=== PATIENT | female | born 1970 | race Caucasian/White ===

== ENCOUNTER 2020-01-26 14:05 | Outpatient (CLI) | payer OTHER, SELFPAY ==
--- NOTE | ~2020-01-26 | US_ITS ---
EXAMINATION: US pelvic complete w TV DATE: 01/26/2020 15:23 INDICATION: Pelvic and perineal pain Comparison:09/19/2014 TECHNIQUE: Multiple transabdominal and endovaginal sonographic images of the pelvis performed. FINDINGS: The uterus measures 7.9 x 5 x 4.5 cm. There are nabothian cysts. The endometrial complex me asures 5 mm. The right ovary measures 2.3 x 2.3 x 1.4 cm and the left ovary measures 2.2 x 2.3 x 2.7 cm. There ar e small follicles in each ovary. There is no free fluid in the pelvis. There are no abnormal masses seen on either side. IMPRESSION: 1. Unremarkable pelvic ultrasound. Reviewed, dictated and finalized at location A.
== END 2020-01-26 14:06 | disposition home or self-care (01) ==
LOC: ANHIMG 14:16
PROVIDERS: PCP Family Medicine; Visit Provider Obstetrics & Gynecology
DX: R10.2 Pelvic and perineal pain (principal)
CPT/HCPCS: 76830; 76856

== ENCOUNTER 2020-03-13 00:34 | Outpatient (CLI) | payer OTHER, SELFPAY ==
[2020-03-13 16:39] LABS: SARS-CoV-2 RNA PCR Negative
== END 2020-03-13 00:35 | disposition home or self-care (01) ==
LOC: ANHCOVIDDT 00:34
PROVIDERS: PCP Family Medicine; Visit Provider Obstetrics & Gynecology
DX: Z01.812 Encounter for preprocedural laboratory examination (principal); Z20.828 Contact with and (suspected) exposure to other viral communicable diseases
CPT/HCPCS: 87635; C9803; U0003

== ENCOUNTER 2020-03-13 08:41 | Outpatient (CLI) | payer OTHER, SELFPAY | END 2020-03-13 08:42 | disposition home or self-care (01) | PROVIDERS: PCP Family Medicine; Visit Provider Obstetrics & Gynecology | DX: Z01.812 Encounter for preprocedural laboratory examination (principal); R10.2 Pelvic and perineal pain | CPT/HCPCS: 36415; 86850; 86900; 86901 ==

== ENCOUNTER 2020-03-15 01:49 | Day surgery (SDC) | payer OTHER, SELFPAY ==
[2020-03-07 18:02] VITALS: BMI 28.4
--- NOTE | 2020-03-14 17:42 | WPDANESEPP ---
Anes - Eval Pre Procedure Procedure: Operation Date: 03/15/20 07:30 Proposed Procedures p Robotic Assisted Laparoscopic Hysterectomy, Bilateral Salpingectomy - David Jones MD s Excision of Perineal Lesion - David Jones MD Date/Time: 03/14/20 17:42 Pre Op Diagnosis: Chronic Pelvic Pain Patient Data Age: 49 Gender: F Height: 5 ft 2 in Weight: 70.45 kg Allergies Allergy/AdvReac Type Severity Reaction Status Date / Time No Known Allergies Allergy Verified 03/07/20 17:29 Home Medications Medication Instructions Recorded Confirmed Type dolutegravir 50 mg-rilpivirine 25 1 tablet PO DAILY 01/11/20 03/07/20 History mg tablet hydrocodone 7.5 mg-acetaminophen 1 tablet PO Q8H PRN 01/11/20 03/07/20 History 325 mg tablet cholecalciferol (vitamin D3) 1,000 mcg PO DAILY 03/07/20 03/07/20 History [Vitamin D3] [id number] fum-folic ac-om3 1 pkg PO DAILY 03/07/20 03/07/20 History [Daily ] tizanidine 4 mg PO TID PRN 03/07/20 03/07/20 History Patient hx anesthesia problems: none Family hx anesthesia problems: none PMFSH Past Medical History Medical History Anxiety Back pain Chronic pain Factor V Leiden History of asymptomatic HIV infection History of DVT (deep vein thrombosis) HIV (human immunodeficiency virus infection) Pelvic pain Polysubstance abuse Smoker Surgical History Surgical History (Updated 03/14/20 @ 17:44 by Xavier Corona CRNA) Hx of tonsillectomy Family History Family History Mother Diabetes mellitus Father Malignant neoplasm of prostate Family history of blood dyscrasia Grandparent Hypertension Family history of diabetes mellitus in first degree relative Other Family history of malignant neoplasm Social History Social History Smoking status: Light tobacco smoker Tobacco type: cigarettes Second hand tobacco smoke exposure: No Additional smoking assessment comments: 5 cigarettes a day x 5 years Alcohol intake: never Substance use: former Substance use type: marijuana Last use: 12/17 Spiritual care concerns: No Exam Day of Procedure 03/14/20 17:42
--- NOTE | 2020-03-14 21:22 | PM.IMHP ---
H&P: HPI History of Present Illness Date/Time: 03/14/20 21:22 Chief complaint: Chronic Pelvic Pain Narrative: Jessica Bass is a 49 year old female with chronic pelvic pain. She has severe dysmenorrhea monthly. It has been occurring for several years but has become worse over the past year. She is not sexually active. She states the pain interferes with work. She states over the counter medication does not help. She has been given a course of antibiotics for subclinical endometritis symptoms and this did not change the pain. She has had a pelvic ultrasound which was normal. She has been ruled out for infections. She is amenorrheic status post endometrial ablation in 2015. She is not a candidate for hormonal options due to history of DVT. 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 She was offered definitive treatment of hysterectomy for the pelvic pain which she desires. She also has a growth on her perinuem near labia area that bothers her due to location and seems to be getting bigger. Desires removal of the lesion at the time of her surgery. Her history is significant for DVT, Factor V Leiden, asymptomatic HIV. She reports that her viral load has been undetectable. Review of Systems Review of Systems: All systems reviewed & are unremarkable except as noted in HPI and below Constitutional: Constitutional: Reports no additional constitutional complaints Eyes: Eyes: Reports no additional eye complaints ENT: Reports Normal hearing present Cardiovascular: Cardiovascular: Denies chest pain and Denies dyspnea Respiratory: Respiratory: Reports no additional respiratory complaints, Denies dyspnea and Reports other Genitourinary: Genitourinary: Reports no additional female genitourinary complaints and Reports as per HPI Neurologic: Reports Normal hearing present Psychiatric: Psychiatric: Reports no additional psychiatric complaints Endocrine: Endocrine: Reports no additional endocrine complaints Hematologic/Lymphatic: Hematologic/Lymphatic: Reports no additional hematologic/lymphatic complaints [facility] Past Medical History Medical History Anxiety Back pain Chronic pain Factor V Leiden History of asymptomatic HIV infection History of DVT (deep vein thrombosis) HIV (human immunodeficiency virus infection) Pelvic pain Polysubstance abuse Smoker Surgical History Surgical History (Updated 03/14/20 @ 17:44 by Xavier Corona CRNA) Hx of tonsillectomy Family History Family History Mother Diabetes mellitus Father Malignant neoplasm of prostate Family history of blood dyscrasia Grandparent Hypertension Family history of diabetes mellitus in first degree relative Other Family history of malignant neoplasm Social History Social History Smoking status: Light tobacco smoker Tobacco type: cigarettes Second hand tobacco smoke exposure: No Additional smoking assessment comments: 5 cigarettes a day x 5 years Alcohol intake: never Substance use: former Substance use type: marijuana Last use: 12/17 Living arrangements: with family Spiritual care concerns: No Meds Home Medications and Allergies Home Medications Medication Instructions Recorded Confirmed Type dolutegravir 50 mg-rilpivirine 25 1 tablet PO DAILY 01/11/20 03/15/20 History mg tablet hydrocodone 7.5 mg-acetaminophen 1 tablet PO Q8H PRN 01/11/20 03/15/20 History 325 mg tablet cholecalciferol (vitamin D3) 1,000 mcg PO DAILY 03/07/20 03/15/20 History [Vitamin D3] [id number] fum-folic ac-om3 1 pkg PO DAILY 03/07/20 03/15/20 History [Daily ] tizanidine 4 mg PO TID PRN 03/07/20 03/15/20 History Allergies Allergy/AdvReac Type Severity Reaction Status Date / Time No Known Allergies Allergy Verified 03/07/20 17:29 Exam Const: General: healthy appeari
[2020-03-15] VITALS (16 sets, daily range): BP systolic 104–122; BP diastolic 50–72; PULSE 62–120; RESP 12–20; TEMP 36.5–37.2; O2SAT 94–100
[2020-03-15] MEDS: LACTATED RINGERS 1,000 ML 30 ML IV CONT ×3 (06:30→10:36)
[2020-03-15] MEDS: ACETAMINOPHEN 500 MG TABLET 1000 MG PO (06:37)
[2020-03-15] MEDS: KETOROLAC 15 MG/ML VIAL (*BKC) IV PUSH (06:55)
--- NOTE | 2020-03-15 07:04 | WPDANESEPPF ---
Anes - Initial Pre Proc Eval Procedure: Operation Date: 03/15/20 07:30 Proposed Procedures p Robotic Assisted Laparoscopic Hysterectomy, Bilateral Salpingectomy - David Jones MD s Excision of Perineal Lesion - David Jones MD Date/Time: 03/15/20 07:04 Surgeon: David Jones MD Pre Op Diagnosis: Chronic Pelvic Pain Patient Data Age: 49 Gender: F Height: 5 ft 2 in Weight: 70.5 kg Last Vital Signs Temp 98.7 F 03/15/20 06:50 Pulse 85 03/15/20 06:50 BP 110/63 03/15/20 06:50 Pulse Ox 98 03/15/20 06:50 Allergies Allergy/AdvReac Type Severity Reaction Status Date / Time No Known Allergies Allergy Verified 03/07/20 17:29 Home Medications Medication Instructions Recorded Confirmed Type dolutegravir 50 mg-rilpivirine 25 1 tablet PO DAILY 01/11/20 03/15/20 History mg tablet hydrocodone 7.5 mg-acetaminophen 1 tablet PO Q8H PRN 01/11/20 03/15/20 History 325 mg tablet cholecalciferol (vitamin D3) 1,000 mcg PO DAILY 03/07/20 03/15/20 History [Vitamin D3] [id number] fum-folic ac-om3 1 pkg PO DAILY 03/07/20 03/15/20 History [Daily ] tizanidine 4 mg PO TID PRN 03/07/20 03/15/20 History Patient hx anesthesia problems: none Family hx anesthesia problems: none PMFSH Past Medical History Medical History Anxiety Back pain Chronic pain Factor V Leiden History of asymptomatic HIV infection History of DVT (deep vein thrombosis) HIV (human immunodeficiency virus infection) Pelvic pain Polysubstance abuse Smoker Surgical History Surgical History (Updated 03/14/20 @ 17:44 by Xavier Corona CRNA) Hx of tonsillectomy Family History Family History Mother Diabetes mellitus Father Malignant neoplasm of prostate Family history of blood dyscrasia Grandparent Hypertension Family history of diabetes mellitus in first degree relative Other Family history of malignant neoplasm Social History Social History Smoking status: Light tobacco smoker Tobacco type: cigarettes Second hand tobacco smoke exposure: No Additional smoking assessment comments: 5 cigarettes a day x 5 years Alcohol intake: never Substance use: former Substance use type: marijuana Last use: 12/17 Living arrangements: with family Spiritual care concerns: No Anes - Eval Final PreProcedure Day of Procedure 03/15/20 07:04 Patient weight: normal Heart: regular rate and rhythm Lungs: clear to auscultation Airway: Mallampati scale class II Neurological: alert and oriented Last oral intake: >/= 8 hours ASA classification: III Emergent: no Anesthetic plan: proceed Anesthesia type and monitoring: general ETT and standard monitoring Informed Consent: The patient's anesthetic plan and its attendant risks and benefits were discussed with the patient/family/POA. Questions were solicited and answers provided to the satisfaction of the patient/family/POA.
--- NOTE | 2020-03-15 07:10 | WPDHPUPDATE1 ---
History and Physical Update Update Date/Time: 03/15/20 07:10 History and Physical has been reviewed, including an updated exam of the patient. There are NO changes in the patient's condition. Risks, benefits, and alternatives have been discussed and questions answered. Patient agrees to proceed with procedure.
[2020-03-15] MEDS: SCOPOLAMINE 1.5 MG PATCH TRANSDERM (07:11)
[2020-03-15] MEDS: ONDANSETRON INJ 4 MG/2 ML VIAL IV PUSH (07:12)
[2020-03-15] MEDS: ceFAZolin 2 GM/D5W 50 ML 2 GM/50 ML BAG IVPB (07:28)
[2020-03-15] MEDS: HEPARIN SODIUM 5,000 UNITS/ML VIAL 5000 UNITS SUB-Q ×2 (07:35→20:24)
[2020-03-15] MEDS: BACITRACIN OINTMENT 15 GM TUBE 1 APPLIC TOPICAL (09:39)
[2020-03-15] MEDS: LIDO 1%/EPINEPHRINE 1:100,000 20 ML VIAL 4 ML INFILTRATE (09:39)
--- NOTE | 2020-03-15 09:59 | PM.PROC ---
Procedure Note - Detailed Date of procedure: 03/15/20 Pre-op diagnosis: Chronic Pelvic Pain 2. Enlarging growth on perineum Post-op diagnosis: same Procedure performed: Robotic assisted laparoscopic total vaginal hysterectomy 2. Bilateral salpingectomy. Description of procedure: After informed consent was obtained patient was taken to the operating room and general endotracheal anesthesia was administered. She was placed in low lithotomy position and prepped and draped in sterile fashion. Prior to being prepped and draped and exam under anesthesia was performed and no masses were palpated uterus palpated to be normal size. Attention was then turned to the vagina. A Martinez catheter had been placed in bladder during prep. Weighted speculum was placed in the vagina. The anterior vaginal wall was retracted with a retractor. A single-tooth tenaculum was placed on the anterior lip of the cervix the uterus was sounded to 5cm the cervix was dilated. The size 5 and then a 3.75 uterine manipulator was inserted and the bulb inflated but bulb pushed the manipulator out of the cervix. A [address] anterior on the cervix and the suture was threaded through the manipulator shapt and secured with clamp allowing the intrauterine manipulator to stay in the cervix. A 3.5 cm colp cup was secured in the vagina.Attention was then turned to the abdomen. With sterile gloves a horizontal incision was made 2cm above the umbilicus with the scalpel. A Veress needle was inserted into the abdomen confirmation into the abdomen was obtained with normal free flow of fluid through the veress needle and normal peritoneal pressures. A pneumoperitoneum of 15 mm per mercury was obtained and a size 11 trocar was inserted under laparoscopic visualization. Attention was then turned to the left side of the abdomen and a robotic port was inserted under laparoscopic visualization. Attention was then turned to the right side parallel to this and a robotic port was inserted under laparoscopic visualization. Superior and medial to this an 8 mm data assistant port was inserted under laparoscopic visualization. A conrad Tamiko fascial closure stitch was placed at umbilical port and the port was reinserted. The patient was placed in Trendelenburg to allow the intestinal organs out of the pelvis. The robotic arms were then attached to the ports. Attention was then turned to the surgery console. Attention was turned to the right round ligament which was cauterized and cut the anterior leaf of the broad ligament was further dissected anteriorly to the vesicouterine peritoneum. The bladder was dissected from the lower uterine segment anteriorly attention was then attention was turned to the fallopian tube which was cauterized from the upper broad ligament and distal ovary. Attention was then turned to the ovarian ligament which was then cauterized and cut. The broad ligament was further cauterized and ascending uterine vessels were cauterized from the broad ligament. The ovarian ligament and fallopian were cauterized from the uterus. The broad ligament was further dissected. The uterine arteries were skeletonized. The ascending uterine vessels wer cauterized. Attention was then turned to the left round ligament which was cauterized and incised. The anterior leaf of the broad ligament was further incised to the vesicouterine peritoneum. The bladder was further dissected from the rest of the lower uterine segment. The left fallopian tube was cauterized from the distal ovary and the broad ligament the left ovarian ligament was then cauterized and incised the ascending uterine vessels were cauterized. The uterine vessels on the left side were skeletonized. The uterine arteries on the left side were cauterized and the cardinal ligament was cauterized. This was done after the bladder was fully dissected below the palpable colp cup. Attention was then turned to the right side and the uterine arteries were skeletonized
[2020-03-15] MEDS: DEXTROSE 5%/LACTATED RINGERS 1,000 ML 125 ML IV CONT ×2 (11:46→20:02)
[2020-03-15] MEDS: MORPHINE SULFATE (*CRX) 4 MG/ML INJ IV PUSH ×2 (12:02→19:04)
--- NOTE | 2020-03-15 15:03 | PC.NURSE ---
This patient, Jessica Bass, was admitted to OB 2nd Floor Room 278-00. Patient/family oriented to hospital policies and general routines including ID bracelet, bed and alarms, visiting hours, pain management, procedures, bathroom and other care routines, personal items, smoking policy, room service/diet, and visiting hours. Valuables list has been completed. Information on how to activate the Rapid Response Team has been discussed. Patient/Family are encouraged to report perceived risks to care and to ask questions if they do not understand what they are told or what they should do.
--- NOTE | 2020-03-15 15:55 | PM.GYNPNOP ---
VETERINARY TECHNOLOGY INSTRUCTOR - A/P Postoperative Procedures: Procedures Operation Date: 03/15/20 07:30 Actual Procedures Side Surgeon p Robotic Assisted Laparoscopic Hysterectomy, Bilateral Salpingectomy David Jones MD s Excision of Perineal Lesion David Jones MD Time Spent With Patient Time: Total time spent is greater than 50% in coordination of care (as documented) at patient's floor/unit and/or counseling patient: Time with patient: less than 15 minutes VETERINARY TECHNOLOGY INSTRUCTOR- PN:Subj Post-Op Subjective Date/time seen: 03/15/20 15:55 Discussed her surgery. She is alert. She request regular food. She tolerated liquids. Abd-+ bs Will advance diet and try oral pain medication. VETERINARY TECHNOLOGY INSTRUCTOR - PN: Obj Data Vital Signs Vital Signs: Vital Signs - 24 hr 03/15/20 06:50 03/15/20 09:54 03/15/20 10:10 Temperature 98.7 F 97.7 F Pulse Rate 85 120 H 70 Respiratory Rate 18 15 Blood Pressure 110/63 104/57 L 105/61 Pulse Oximetry 98 100 100 03/15/20 10:25 03/15/20 10:40 03/15/20 10:55 Temperature Pulse Rate 62 76 69 Respiratory Rate 16 20 12 Blood Pressure 107/58 L 113/58 L 105/61 Pulse Oximetry 99 96 96 03/15/20 11:10 03/15/20 11:30 03/15/20 11:45 Temperature 98.3 F Pulse Rate 68 77 79 Respiratory Rate 20 16 16 Blood Pressure 110/72 114/53 L 114/50 L Pulse Oximetry 94 97 95 03/15/20 12:00 03/15/20 12:30 03/15/20 13:00 Temperature Pulse Rate 82 70 86 Respiratory Rate 16 16 16 Blood Pressure 119/57 L 107/51 L 107/60 Pulse Oximetry 95 95 96 03/15/20 14:00 03/15/20 15:00 Temperature 98.8 F Pulse Rate 71 80 Respiratory Rate 16 16 Blood Pressure 112/53 L 105/53 L Pulse Oximetry 94 97 Intake/Output Intake/Output: Intake & Output 03/12/20 03/13/20 03/14/20 03/15/20 23:59 23:59 23:59 23:59 Intake Total 700 Output Total 390 Balance 310 Meds/Results Medications: Active Medications Generic Name Dose Route Start Last Admin Trade Name Freq PRN Reason Stop Dose Admin Hydrocodone Bitart/Acetaminophen 1 tab 03/15/20 09:40 [place] 5-325 Mg PO Q3H PRN Pain Rated 5 or Less Hydrocodone Bitart/Acetaminophen 1 tab 03/15/20 09:40 [place] 10-325 Mg PO Q3H PRN Pain Rated 6 or Greater Hydrocodone Bitart/Acetaminophen 1 tab 03/15/20 09:49 [place] 7.5-325 Mg PO Q8H PRN Back Pain Docusate Sodium 100 mg 03/15/20 17:00 Colace Capsule PO BID ROLAND Heparin Sodium (Porcine) 5,000 units 03/15/20 21:00 Heparin Sodium SUB-Q Q12HR ROLAND Dextrose/Lactated Ringer's 1,000 mls @ 125 mls/hr 03/15/20 09:40 03/15/20 11:46 Dextrose 5%/Lactated Ringers IV CONT 125 mls/hr .Q8H ROLAND Administration Acetaminophen 1,000 mg in 100 mls @ 400 mls/hr 03/15/20 12:00 03/15/20 11:46 Ofirmev 1,000 Mg Ivpb IVPB 03/16/20 12:01 400 mls/hr Q6HR ROLAND Administration Morphine Sulfate 4 mg 03/15/20 09:40 03/15/20 12:02 Morphine Sulfate Inj (*Crx) IV PUSH 4 mg Q4H PRN Administration Severe breakthrough pain Naloxone HCl 0.1 mg 03/15/20 09:40 Narcan IV PUSH Q2M PRN Respiratory rate less than 10 Non-Formulary Medication 1 tablet 03/16/20 09:00 Dolutegravir-Rilpivirine [Juluca] PO 04/15/20 09:01 DAILY [facility] Ondansetron HCl 4 mg 03/15/20 09:40 Zofran Inj IV PUSH Q6H PRN Nausea And Vomiting Vit/Calcium/Iron/Folic Ac 1 tab 03/16/20 09:00 Mr 90 PO DAILY [facility] Simethicone 80 mg 03/15/20 09:40 Mylicon PO Q2H PRN Gas Tizanidine HCl 4 mg 03/15/20 09:49 Zanaflex PO TID PRN Back Pain Vitamin D 1,000 units 03/16/20 09:00 Vitamin D PO DAILY [facility] Labs CBC & Chem 7: 03/16/20 03:51
[2020-03-15] MEDS: oxyCODONE/ACETAMINOPHEN (*CRX) 5-325 MG TABLET 2 TABLET PO ×2 (16:19→20:23)
[2020-03-15] MEDS: SIMETHICONE 80 MG TAB.CHEW PO (17:03)
[2020-03-15] MEDS: DOCUSATE SODIUM 100 MG CAPSULE PO (18:02)
[2020-03-15 20:11] LABS: Mean Platelet Volume 10.8 fl (7.4-10.4); Platelet Count Result 150 k/mm3 (150-375)
[2020-03-16] VITALS: BP 100/54; PULSE 84; RESP 16; TEMP 36.8; O2SAT 95
[2020-03-16] MEDS: oxyCODONE/ACETAMINOPHEN (*CRX) 5-325 MG TABLET 2 TABLET PO ×3 (02:03→11:26)
[2020-03-16] MEDS: DEXTROSE 5%/LACTATED RINGERS 1,000 ML 125 ML IV CONT (03:46)
[2020-03-16] MEDS: MORPHINE SULFATE (*CRX) 4 MG/ML INJ IV PUSH (03:49)
[2020-03-16 04:00] VITALS: BP 115/63; PULSE 60; RESP 20; TEMP 36.8; O2SAT 98
[2020-03-16 05:52] LABS: Basophils Percent Auto 0.3 % (0.2-1.2); Eosinophils Percent Auto 0.1 % (0-4.4); Hematocrit 33.1 % (37.0-47.0); Hemoglobin 10.9 g/dL (12.0-15.0); Immature Granulocyte Absolute 0.02 K/mm3 (0.00-0.031); Immature Granulocyte Percent A 0.3 % (0-0.5); Lymphocytes Absolute Auto 1.91 K/mm3 (0.9-3.2); Lymphocytes Percent Auto 24.2 % (18.3-44.2); Mean Corpuscular HGB Conc 32.9 g/dl (32-36); Mean Corpuscular Hemoglobin 32.3 pg (26-34); Mean Corpuscular Volume 98.2 fl (80-100); Mean Platelet Volume 11.5 fl (7.4-10.4); Monocytes Absolute Auto 0.6 K/mm3 (0.1-0.6); Monocytes Percent Auto 7.2 % (2.6-8.5); Neutrophils Absolute Auto 5.4 K/mm3 (1.3-6.7); Neutrophils Percent Auto 67.9 % (45.5-73.1); Platelet Count Result 149 k/mm3 (150-375); Red Blood Count 3.37 M/mm3 (4.2-5.4); Red Cell Distribution Width 12.7 % (11.5-14.5); White Blood Count 7.9 K/mm3 (4.5-10.0)
[2020-03-16] MEDS: SIMETHICONE 80 MG TAB.CHEW PO ×3 (07:12→15:26)
[2020-03-16 08:25] VITALS: BP 126/50; PULSE 57; RESP 18; TEMP 37.1; O2SAT 93
--- NOTE | 2020-03-16 08:54 | PM.GYNPNOP ---
GRAIL[employer] APPLICATION DEVELOPER - A/P Assessment and plan (1) Encounter for postoperative care: Code(s): Z48.89 - Encounter for other specified surgical aftercare Status: Acute Assessment and Plan: S/P robotic hysterectomy BSO. Will hold on Toradol due to platelets borderline. She has ambulated. Will add Motrin to Percocoet. Postoperative Procedures: Procedures Operation Date: 03/15/20 07:30 Actual Procedures Side Surgeon p Robotic Assisted Laparoscopic Hysterectomy, Bilateral Salpingectomy David Jones MD s Excision of Perineal Lesion David Jones MD Time Spent With Patient Time: Total time spent is greater than 50% in coordination of care (as documented) at patient's floor/unit and/or counseling patient: Time with patient: less than 15 minutes GRAILS [employer] APPLICATION DEVELOPER- PN:Subj Post-Op Subjective Date/time seen: 03/16/20 08:54 Unable to exam She was in bathroom. I talked to her. She states still has pain with oral meds. Tolerated regular food. GRAIL[employer] APPLICATION DEVELOPER - PN: Obj Data Vital Signs Vital Signs: Vital Signs - 24 hr 03/15/20 09:54 03/15/20 10:10 03/15/20 10:25 Temperature 97.7 F Pulse Rate 120 H 70 62 Respiratory Rate 18 15 16 Blood Pressure 104/57 L 105/61 107/58 L Pulse Oximetry 100 100 99 03/15/20 10:40 03/15/20 10:55 03/15/20 11:10 Temperature Pulse Rate 76 69 68 Respiratory Rate 20 12 20 Blood Pressure 113/58 L 105/61 110/72 Pulse Oximetry 96 96 94 03/15/20 11:30 03/15/20 11:45 03/15/20 12:00 Temperature 98.3 F Pulse Rate 77 80 82 Respiratory Rate 16 16 16 Blood Pressure 114/53 L 114/50 L 119/57 L Pulse Oximetry 97 97 95 03/15/20 12:30 03/15/20 13:00 03/15/20 14:00 Temperature Pulse Rate 70 86 71 Respiratory Rate 16 16 16 Blood Pressure 107/51 L 107/60 112/53 L Pulse Oximetry 95 96 94 03/15/20 15:00 03/15/20 15:45 03/15/20 20:00 Temperature 98.8 F 98.9 F Pulse Rate 80 80 65 Respiratory Rate 16 16 18 Blood Pressure 105/53 L 122/67 Pulse Oximetry 97 97 97 03/16/20 00:00 03/16/20 04:00 03/16/20 08:25 Temperature 98.2 F 98.3 F 98.8 F Pulse Rate 84 60 57 L Respiratory Rate Blood Pressure 100/54 L 115/63 126/50 L Pulse Oximetry 95 98 93 Intake/Output Intake/Output: Intake & Output 03/13/20 03/14/20 03/15/20 03/16/20 23:59 23:59 23:59 23:59 Intake Total 2700 1450 Output Total 1365 950 Balance 1335 500 Meds/Results Medications: Active Medications Generic Name Dose Route Start Last Admin Trade Name Freq PRN Reason Stop Dose Admin Hydrocodone Bitart/Acetaminophen 1 tab 03/15/20 09:49 [place] 7.5-325 Mg PO Q8H PRN Back Pain Docusate Sodium 100 mg 03/15/20 17:00 03/15/20 18:02 Colace Capsule PO 100 mg BID ROLAND Administration Dextrose/Lactated Ringer's 1,000 mls @ 125 mls/hr 03/15/20 09:40 03/16/20 07:15 Dextrose 5%/Lactated Ringers IV CONT Infused .Q8H ROLAND Infusion Acetaminophen 1,000 mg in 100 mls @ 400 mls/hr 03/15/20 12:00 03/15/20 18:17 Ofirmev 1,000 Mg Ivpb IVPB 03/16/20 12:01 Infused Q6HR ROLAND Infusion Ibuprofen 600 mg 03/16/20 08:52 Motrin PO Q6H PRN Pain Morphine Sulfate 4 mg 03/15/20 09:40 03/16/20 03:49 Morphine Sulfate Inj (*Crx) IV PUSH 4 mg Q4H PRN Administration Severe breakthrough pain Naloxone HCl 0.1 mg 03/15/20 09:40 Narcan IV PUSH Q2M PRN Respiratory rate less than 10 Ondansetron HCl 4 mg 03/15/20 09:40 Zofran Inj IV PUSH Q6H PRN Nausea And Vomiting Oxycodone/Acetaminophen 1 tablet 03/15/20 15:54 Perc[place] 5-325 Mg PO Q4-6H PRN Pain Rated 5 or Less Oxycodone/Acetaminophen 2 tablet 03/15/20 15:56 03/16/20 07:12 Perc[place] 5-325 Mg PO 2 tablet Q4-6H PRN Administration Pain Rated 6 or Greater Vit/Calcium/Iron/Folic Ac 1 tab 03/16/20 09:00 Mr 90 PO DAILY ROLAND Simethicone 80 mg 03/15/20 09:40 03/16/20 07:12 Mylicon PO 80 mg Q2H PRN Administration
[2020-03-16] MEDS: DOCUSATE SODIUM 100 MG CAPSULE PO (09:01)
[2020-03-16] MEDS: CHOLECALCIFEROL 1,000 UNITS TABLET 1000 UNITS PO (09:01)
[2020-03-16] MEDS: MULTIVIT/MIN/PREN/FOL AC/IRON TABLET 1 TAB PO (09:01)
[2020-03-16] MEDS: IBUPROFEN 600 MG TABLET (09:06)
--- NOTE | 2020-03-16 10:42 | WPDANESPN ---
Anes - Prog Note Post-Op Date/Time: 03/16/20 10:42 Cardiovascular status: normal Respiratory status: normal Airway patency: baseline Mental status: baseline Post-Op hydration status: normal Vital Signs: Last Vital Signs Temp 37.1 C 03/16/20 08:25 Pulse 57 L 03/16/20 08:25 Resp 18 03/16/20 08:25 BP 126/50 L 03/16/20 08:25 Pulse Ox 93 03/16/20 08:25 Pain Score (VAS): 07/09 I/O: Intake & Output 03/15/20 03/16/20 03/16/20 23:59 07:59 15:59 Intake Total 1900 1450 Output Total 550 950 Balance 1350 500 Laboratory Tests 03/16/20 03:51 03/15/20 03/16/20 19:59 03:51 WBC 7.9 RBC 3.37 L Hgb 10.9 L Hct 33.1 L MCV 98.2 MCH 32.3 MCHC 32.9 RDW 12.7 Plt Count 150 149 L MPV 10.8 H 11.5 H Immature Gran % (Auto) 0.3 Neut % (Auto) 67.9 Lymph % (Auto) 24.2 [place] % (Auto) 7.2 Eos % (Auto) 0.1 Baso % (Auto) 0.3 Lymph # (Auto) 1.91 [place] # (Auto) 0.6 Eos # (Auto) 0.0 Baso # (Auto) 0.0 Abs Immat Gran (auto) 0.02 Absolute Neuts (auto) 5.4 Absolute Nucleated RBC 0.0 Nucleated RBC % 0.0 Post-procedural complaints: none Patient Feedback: Patient satisfied with anesthetic care.
--- NOTE | 2020-03-16 13:16 | PM.GYNPNOP ---
[employer] [facility] - A/P Postoperative Procedures: Procedures Operation Date: 03/15/20 07:30 Actual Procedures Side Surgeon p Robotic Assisted Laparoscopic Hysterectomy, Bilateral Salpingectomy David Jones MD s Excision of Perineal Lesion David Jones MD Time Spent With Patient Time: Total time spent is greater than 50% in coordination of care (as documented) at patient's floor/unit and/or counseling patient: Time with patient: less than 15 minutes [employer]- PN:Subj Post-Op Subjective Date/time seen: 03/16/20 13:16 Patient states pain 8 when its time to get next dose. Will try Dilaudid. Will not do Toradol due to platelets <150. [employer] - PN: Obj Data Vital Signs Vital Signs: Vital Signs - 24 hr 03/15/20 14:00 03/15/20 15:00 03/15/20 15:45 Temperature 98.8 F Pulse Rate 71 80 80 Respiratory Rate 16 16 16 Blood Pressure 112/53 L 105/53 L Pulse Oximetry 94 97 97 03/15/20 20:00 03/16/20 00:00 03/16/20 04:00 Temperature 98.9 F 98.2 F 98.3 F Pulse Rate 65 84 60 Respiratory Rate 18 16 20 Blood Pressure 122/67 100/54 L 115/63 Pulse Oximetry 97 95 98 03/16/20 08:25 Temperature 98.8 F Pulse Rate 57 L Respiratory Rate 18 Blood Pressure 126/50 L Pulse Oximetry 93 Intake/Output Intake/Output: Intake & Output 03/13/20 03/14/20 03/15/20 03/16/20 23:59 23:59 23:59 23:59 Intake Total 2700 1450 Output Total 1365 950 Balance 1335 500 Meds/Results Medications: Active Medications Generic Name Dose Route Start Last Admin Trade Name Freq PRN Reason Stop Dose Admin Hydrocodone Bitart/Acetaminophen 1 tab 03/15/20 09:49 [place] 7.5-325 Mg PO Q8H PRN Back Pain Docusate Sodium 100 mg 03/15/20 17:00 03/16/20 09:01 Colace Capsule PO 100 mg BID ROLAND Administration Ibuprofen 600 mg 03/16/20 08:52 Motrin PO Q6H PRN Cramping Morphine Sulfate 4 mg 03/15/20 09:40 03/16/20 03:49 Morphine Sulfate Inj (*Crx) IV PUSH 4 mg Q4H PRN Administration Severe breakthrough pain Naloxone HCl 0.1 mg 03/15/20 09:40 Narcan IV PUSH Q2M PRN Respiratory rate less than 10 Ondansetron HCl 4 mg 03/15/20 09:40 Zofran Inj IV PUSH Q6H PRN Nausea And Vomiting Oxycodone/Acetaminophen 1 tablet 03/15/20 15:54 Percocet 5-325 Mg PO Q4-6H PRN Pain Rated 5 or Less Oxycodone/Acetaminophen 2 tablet 03/15/20 15:56 03/16/20 11:26 Percocet 5-325 Mg PO 2 tablet Q4-6H PRN Administration Pain Rated 6 or Greater Vit/Calcium/Iron/Folic Ac 1 tab 03/16/20 09:00 03/16/20 09:01 Mr 90 PO 1 tab DAILY ROLAND Administration Simethicone 80 mg 03/15/20 09:40 03/16/20 13:06 Mylicon PO 80 mg Q2H PRN Administration Gas Tizanidine HCl 4 mg 03/15/20 09:49 Zanaflex PO TID PRN Back Pain Vitamin D 1,000 units 03/16/20 09:00 03/16/20 09:01 Vitamin D PO 1,000 units DAILY ROLAND Administration Labs CBC & Chem 7: 03/16/20 03:51 Labs: Laboratory Results - last 24 hr 03/15/20 03/16/20 19:59 03:51 WBC 7.9 RBC 3.37 L Hgb 10.9 L Hct 33.1 L MCV 98.2 MCH 32.3 MCHC 32.9 RDW 12.7 Plt Count 150 149 L MPV 10.8 H 11.5 H Immature Gran % (Auto) 0.3 Neut % (Auto) 67.9 Lymph % (Auto) 24.2 [place] % (Auto) 7.2 Eos % (Auto) 0.1 Baso % (Auto) 0.3 Lymph # (Auto) 1.91 [place] # (Auto) 0.6 Eos # (Auto) 0.0 Baso # (Auto) 0.0 Abs Immat Gran (auto) 0.02 Absolute Neuts (auto) 5.4 Absolute Nucleated RBC 0.0 Nucleated RBC % 0.0
[2020-03-16] MEDS: HYDROmorphone HCL (*CRX) 4 MG TABLET 2 MG PO (15:25)
[2020-03-16] MEDS: IBUPROFEN 600 MG TABLET PO (15:26)
--- NOTE | 2020-03-16 17:01 | PM.DS ---
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 - Neoplasm of unspecified behavior of other genitourinary organ Status: Acute DS: Summary Time Spent with Patient Time attestation: Total time spent providing and/or coordinating discharge services: Exam Const: General: cooperative and no acute distress Resp: Effort & Inspection: normal respiratory effort Psych: Appearance: grossly normal DS: Data Data Completed and Pending Completed studies during hospitalization: Pending at discharge 03/15/20 09:20 Surgical [PTH] Routine Surgical [PTH] Routine Labs on day of discharge: Labs from last 24 hours 03/16/20 03/15/20 03:51 19:59 WBC 7.9 RBC 3.37 L Hgb 10.9 L Hct 33.1 L MCV 98.2 MCH 32.3 MCHC 32.9 RDW 12.7 Plt Count 149 L 150 MPV 11.5 H 10.8 H Immature Gran % (Auto) 0.3 Neut % (Auto) 67.9 Lymph % (Auto) 24.2 [place] % (Auto) 7.2 Eos % (Auto) 0.1 Baso % (Auto) 0.3 Lymph # (Auto) 1.91 [place] # (Auto) 0.6 Eos # (Auto) 0.0 Baso # (Auto) 0.0 Abs Immat Gran (auto) 0.02 Absolute Neuts (auto) 5.4 Absolute Nucleated RBC 0.0 Nucleated RBC % 0.0 Discharge Plan Discharge Patient Disposition: Home, Self-Care Patient Instructions: Laparoscopic Hysterectomy (DC) Discharge Medications: No Action hydrocodone-acetaminophen 7.5-325 mg tablet 1 tablet PO Q8H PRN (Reason: Back Pain) RF: 0 [place] 50-25 mg tablet 1 tablet PO DAILY RF: 0 cholecalciferol (vitamin D3) [Vitamin D3] 25 mcg (1,000 unit) Tablet 1,000 mcg PO DAILY RF: 0 Daily [phone] mg-mcg-mg Combo Pack 1 pkg PO DAILY RF: 0 tizanidine 4 mg Capsule 4 mg PO TID PRN (Reason: Back Pain) RF: 0
--- NOTE | 2020-03-16 17:02 | PM.GYNPNOP ---
[facility] PT - A/P Postoperative Procedures: Procedures Operation Date: 03/15/20 07:30 Actual Procedures Side Surgeon p Robotic Assisted Laparoscopic Hysterectomy, Bilateral Salpingectomy David Jones MD s Excision of Perineal Lesion David Jones MD Time Spent With Patient Time: Total time spent is greater than 50% in coordination of care (as documented) at patient's floor/unit and/or counseling patient: Time with patient: less than 15 minutes TRAVEL PT- PN:Subj Post-Op Subjective Date/time seen: 03/16/20 17:02 Her pain was well controlled with Dilaudid. She ambulated in room. She tolerated regular diet. Desires discharge home. Will discharge home. [facility]EL PT - PN: Obj Data Vital Signs Vital Signs: Vital Signs - 24 hr 03/15/20 20:00 03/16/20 00:00 03/16/20 04:00 Temperature 98.9 F 98.2 F 98.3 F Pulse Rate 65 84 60 Respiratory Rate 18 16 20 Blood Pressure 122/67 100/54 L 115/63 Pulse Oximetry 97 95 98 03/16/20 08:25 Temperature 98.8 F Pulse Rate 57 L Respiratory Rate 18 Blood Pressure 126/50 L Pulse Oximetry 93 Intake/Output Intake/Output: Intake & Output 03/13/20 03/14/20 03/15/20 03/16/20 23:59 23:59 23:59 23:59 Intake Total 2700 1450 Output Total 1365 1400 Balance 1335 50 Meds/Results Medications: Active Medications Generic Name Dose Route Start Last Admin Trade Name Freq PRN Reason Stop Dose Admin Hydrocodone Bitart/Acetaminophen 1 tab 03/15/20 09:49 [place] 7.5-325 Mg PO Q8H PRN Back Pain Docusate Sodium 100 mg 03/15/20 17:00 03/16/20 09:01 Colace Capsule PO 100 mg BID ROLAND Administration Hydromorphone HCl 2 mg 03/16/20 13:20 03/16/20 15:25 Dilaudid Tablet PO 2 mg Q4H PRN Administration Pain Rated 7-10 Ibuprofen 600 mg 03/16/20 08:52 03/16/20 15:26 Motrin PO 600 mg Q6H PRN Administration Cramping Morphine Sulfate 4 mg 03/15/20 09:40 03/16/20 03:49 Morphine Sulfate Inj (*Crx) IV PUSH 4 mg Q4H PRN Administration Severe breakthrough pain Naloxone HCl 0.1 mg 03/15/20 09:40 Narcan IV PUSH Q2M PRN Respiratory rate less than 10 Ondansetron HCl 4 mg 03/15/20 09:40 Zofran Inj IV PUSH Q6H PRN Nausea And Vomiting Oxycodone/Acetaminophen 1 tablet 03/15/20 15:54 Percocet 5-325 Mg PO Q4-6H PRN Pain Rated 5 or Less Oxycodone/Acetaminophen 2 tablet 03/15/20 15:56 03/16/20 11:26 Percocet 5-325 Mg PO 2 tablet Q4-6H PRN Administration Pain Rated 6 or Greater Vit/Calcium/Iron/Folic Ac 1 tab 03/16/20 09:00 03/16/20 09:01 Mr 90 PO 1 tab DAILY ROLAND Administration Simethicone 80 mg 03/15/20 09:40 03/16/20 15:26 Mylicon PO 80 mg Q2H PRN Administration Gas Tizanidine HCl 4 mg 03/15/20 09:49 Zanaflex PO TID PRN Back Pain Vitamin D 1,000 units 03/16/20 09:00 03/16/20 09:01 Vitamin D PO 1,000 units DAILY ROLAND Administration Labs CBC & Chem 7: 03/16/20 03:51 Labs: Laboratory Results - last 24 hr 03/15/20 03/16/20 19:59 03:51 WBC 7.9 RBC 3.37 L Hgb 10.9 L Hct 33.1 L MCV 98.2 MCH 32.3 MCHC 32.9 RDW 12.7 Plt Count 150 149 L MPV 10.8 H 11.5 H Immature Gran % (Auto) 0.3 Neut % (Auto) 67.9 Lymph % (Auto) 24.2 [place] % (Auto) 7.2 Eos % (Auto) 0.1 Baso % (Auto) 0.3 Lymph # (Auto) 1.91 [place] # (Auto) 0.6 Eos # (Auto) 0.0 Baso # (Auto) 0.0 Abs Immat Gran (auto) 0.02 Absolute Neuts (auto) 5.4 Absolute Nucleated RBC 0.0 Nucleated RBC % 0.0
== END 2020-03-16 17:58 | disposition home or self-care (01) ==
LOC: ANHSURGERY 05:55 → ANHOB2 11:26
PROVIDERS: PCP Family Medicine; Visit Provider Obstetrics & Gynecology
PROC: (CPT 58552; principal; 2020-03-15 07:30)
PROC: (CPT 58552; 2020-03-15 07:30)
DX: R10.2 Pelvic and perineal pain (principal); G89.29 Other chronic pain; N80.0 Endometriosis of uterus; D25.1 Intramural leiomyoma of uterus; N73.6 Female pelvic peritoneal adhesions (postinfective); N94.6 Dysmenorrhea, unspecified; N94.89 Other specified conditions associated with female genital organs and menstrual cycle; L82.1 Other seborrheic keratosis; Z21 Asymptomatic human immunodeficiency virus [HIV] infection status; D68.51 Activated protein C resistance; F41.9 Anxiety disorder, unspecified; Z86.718 Personal history of other venous thrombosis and embolism; F17.210 Nicotine dependence, cigarettes, uncomplicated; F12.90 Cannabis use, unspecified, uncomplicated
CPT/HCPCS: 58552; 11420; S2900; 36415; 85025; 85049; 86850; 86900; 86901; 87635; 88304; 88305; 88307; 99199; A9270; C9803; J0131; J0690; J1100; J1170; J1644; J1885; J2250; J2270; J2405; J2704; J2710; J3010; J7030; J7120; J7121; U0003